=== PATIENT | female | born 2000 | race Caucasian/White ===

== ENCOUNTER 2024-02-09 17:58 | Emergency (ER) | payer BC, SELFPAY ==
--- NOTE | ~2024-02-09 | XR_ITS ---
EXAMINATION: XR LUMBOSACRAL SPINE CLINICAL INFORMATION: Low back pain COMPARISON: None available. TECHNIQUE: Three views of the lumbosacral spine. FINDINGS: Postop changes of laminectomy seen from L4 through S1. The vertebral bodies and posterior elements are otherwise unremarkable. The disc spaces are preserved and the vertebral alignment is normal. The paraspinal soft tissues are normal. XR/XR lumbar spine 2-3V IMPRESSION: Postop changes of laminectomy from L4 through S1. Please correlate with surgical history.
[2024-02-09 17:59] VITALS: BP 136/74; PULSE 79; RESP 18; TEMP 37.1; O2SAT 98; BMI 32.9
--- NOTE | 2024-02-09 18:00 | ED.BACK ---
HPI - Back Pain/Injury General Chief Complaint: Back Pain/Injury Stated Complaint: low back back shooting into R leg Time Seen by Provider: 02/09/24 17:59 Source: patient Mode of arrival: ambulatory Limitations: no limitations History of Present Illness ED Provider: Maricarmen Montez APRN HPI Narrative: 23 yo female with history of tethered cord s/p relapse here with complaints of lower back pain R>L after bending down after getting out of the shower today. Reports intermittent pain for months. Pain radiates down the right leg. Chronic right leg numbness since second surgery as a child. No left leg numbness. No numbness in the groin. No urinary symptoms or incontinence. No fevers, chills. Patient is ambulatory. Related Data Previous Rx's ?Medication ?Instructions ?Recorded cyclobenzaprine 10 mg tablet 10 mg PO TID PRN muscle spasm #15 02/09/24 tabs ibuprofen 600 mg tablet 600 mg PO Q6H PRN pain #30 tabs 02/09/24 prednisone 20 mg tablet 40 mg (2 x 20 mg) PO DAILY #10 tabs 02/09/24 Allergies Allergy/AdvReac Type Severity Reaction Status Date / Time codeine Allergy Hives Verified 02/09/24 18:02 Review of Systems Review of Systems: Yes all other systems are reviewed and are negative Constitutional: Constitutional: Reports no additional constitutional complaints, Denies body ache(s), Denies chills, Denies fever(s), Denies headache(s) and Denies weakness Eyes: Eyes: Reports no additional eye complaints and Denies change in vision ENT: Reports system reviewed and no additional complaints, except as documented, Denies dizziness, Denies headache(s), Denies nasal congestion, Denies nasal discharge and Denies neck pain Cardiovascular: Cardiovascular: Reports no additional cardiovascular complaints, Denies chest pain, Denies leg edema and Denies dyspnea Respiratory: Respiratory: Reports no additional respiratory complaints, Denies cough and Denies dyspnea Gastrointestinal: Gastrointestinal: Reports no additional gastrointestinal complaints, Denies abdominal pain, Denies diarrhea, Denies nausea and Denies vomiting Genitourinary: Genitourinary: Reports no additional female genitourinary complaints and Denies urinary incontinence Musculoskeletal: Musculoskeletal: Reports no additional musculoskeletal complaints, Reports back pain, Denies arthralgias, Denies joint swelling, Denies neck pain, Denies numbness, Reports radiating pain into limb and Denies tingling Integumentary/Breasts: Skin/Breast: Reports system reviewed and no additional complaints, except as docu and Denies rash Neurologic: Reports system reviewed and no additional complaints, except as documented, Denies Abnormal speech present, Denies dizziness, Denies headache(s), Denies numbness, Denies tingling and Denies weakness PMFSH Past Medical History Attestation statement: The following information was validated with the patient. Source: old records reviewed and nursing notes reviewed Social History Social History Advance Directives: No Advance Directives Information Provided: No Do you have a plan to hurt others: No Plan Physical Exam Vital Signs: Vital Signs: Last Vital Signs Temp 98.7 F 02/09/24 19:53 Pulse 79 02/09/24 19:53 Resp 18 02/09/24 19:53 BP 136/74 02/09/24 19:53 Pulse Ox 98 02/09/24 19:53 O2 Del Method Room Air 02/09/24 19:53 BMI result Body Mass Index 32.9 Const: General: cooperative, healthy appearing, comfortable and no acute distress Orientation/consciousness: patient oriented x3 Limitations: no limitations HEENT: Head: Yes normal to inspection Ears: hearing grossly normal bilaterally General nose exam: Normal external nose present Face and sinus: Yes normal facial exam Mouth: Normal oral and palatal mucosa present Throat: Yes posterior oropharynx normal Eyes: General: appearance normal, both eyes and all related structures Pupils: Equal, round and reactive pupils present Neck: Neck: Yes normal visual inspection Chest: Chest palpation & inspection: normal inspection of the chest Resp: Effort & Inspection: normal respiratory effort Auscultation: clear to auscultation bilaterally Cardio: Rate: regular rate Rhythm: regular rhythm Peripheral pulses: Peripheral pulses 2+ throughout GI: Inspection: Yes normal to inspection Palpation (GI): Soft to palpation and nontender Auscultation: normal bowel sounds Back/Spine/Pelvis: Other: There is tenderness the lumbar soft tissue on the right side. No midline tenderness, step-offs or deformities. Thoracic/Lumbar Spine: thoracic and lumbar spine normal to inspection Skin: General skin exam: no rashes or lesions noted Neuro: General: patient oriented x3, no focal motor deficits and normal sensation to monofilament Cranial nerves: Yes Equal, round and reactive pupils present Cognition (Neuro): normal cognition Speech: No Abnormal speech present Gait exam (Neuro): Normal gait present Motor exam (neuro): 5/5 motor strength present throughout Sensory Exam: Normal double simultaneous stimulation for sensation Deep tendon reflexes (DTR's): Right patellar reflex intensity grade: 2+ and Left patellar reflex intensity grade: 2+ Extrem: General: Yes normal to inspection Course Course Course Narrative: X-ray shows stable postop changes. This is consistent with patient's history of tethered cord release. No bony abnormalities. Patient will be discharged home with supportive measures. Reviewed worrisome signs and symptoms of when to return to the emergency room. Comfortable plan for discharge home. Medical Decision Making Medical Decision Making MDM Narrative: 23 yo female with history of tethered cord s/p relapse here with complaints of lower back pain R>L after bending down after getting out of the shower today. Reports intermittent pain for months. Pain radiates down the right leg. Chronic right leg numbness since second surgery as a child. No left leg numbness. No numbness in the groin. No urinary symptoms or incontinence. No fevers, chills. Patient is ambulatory Tenderness to the right lumbar soft tissue with no midline tenderness, step-offs or deformities. Patient with baseline sensation change in right lower extremity which is not new. Otherwise her neuro exam is normal. Will obtain x-rays Differential Diagnosis Differential Diagnoses: The differential diagnosis associated with the presentation includes Sciatica, lumbar strain, herniated, lumbar radiculopathy Low suspicion for epidural abscess, malignancy, cauda equina Admission/Observation Consideration of admission/observation: Escalation of care including admission/observation considered Low suspicion for epidural abscess, malignancy, cauda equina warranting advanced imaging Independent Interpretation I performed an independent interpretation of an: Plain X-Ray Interpretation: I independently reviewed the x-ray and agree with the radiology report Radiology Impression Discussion of test interpretation with radiology: I have reviewed the radiologist's reading. Radiologist Impression: [address] [address] XRay Report Signed Patient: Eduarda Amin MR#: [id number] : 2000 Acct:[id number] Age/Sex: 23 / F ADM Date: 02/09/24 Loc: HO.ED Attending Dr: Ordering Physician: Maricarmen Cespedes NP Date of Service: 02/09/24 Procedure(s): XR lumbar spine 2-3V Accession Number(s): [id number] cc: PREMA ORTIZ MD; Maricarmen Cespedes NP~ EXAMINATION: XR LUMBOSACRAL SPINE CLINICAL INFORMATION: Low back pain COMPARISON: None available. TECHNIQUE: Three views of the lumbosacral spine. FINDINGS: Postop changes of laminectomy seen from L4 through S1. The vertebral bodies and posterior elements are otherwise unremarkable. The disc spaces are preserved and the vertebral alignment is normal. The paraspinal soft tissues are normal. XR/XR lumbar spine 2-3V IMPRESSION: Postop changes of laminectomy from L4 through S1. Please correlate with surgical history. Tests considered The following testing was considered but not selected: Low suspicion for epidural abscess, malignancy, cauda equina warranting advanced imaging Prescription Management I considered prescription management with: Pain Medication Discharge Plan Discharge Clinical Impression: Strain of lumbar region Patient Disposition: Home, Self-Care Instructions: Low Back Strain (ED) Additional Instructions: Heat or ice Gentle stretching No heavy lifting or bending Follow-up with primary care doctor in 1 week for any persistent symptoms Return to the emergency room for any numbness in the groin, fever, bowel or bladder incontinence Prescriptions: New prednisone 20 mg tablet 40 mg PO DAILY Qty: 10 0RF cyclobenzaprine 10 mg tablet 10 mg PO TID PRN (Reason: muscle spasm) Qty: 15 0RF ibuprofen 600 mg tablet 600 mg PO Q6H PRN (Reason: pain) Qty: 30 0RF Referrals: Prema Ortiz MD [Primary Care Provider] - 1 week Stand Alone Forms: Work/School Release Interventions: ED Discharge Assessment Last Done: 02/09/24 19:53 Discharge Date/Time: 02/09/24 19:53 Print Language: Gambian
--- OUTSIDE RECORDS SUMMARY | 2024-02-09 18:41 | XMS_ITS | Continuity of Care Document ---
Author Organization [facility] Address [address] [place] [address]- Care Team Providers Care Architecture Analyst Name Role Phone Shaheed EXPERIMENTAL MECHANIC, Chelsey Schmidt Primary Care Physician [place] [facility] [place]/06[place]21 - 08/05/21 [facility] [address] [place], [place] [address] Attending Physician: Kim Edwards Admitting Physician: Kim Edwards Referring Physician: Kim Edwards Allergies, Adverse Reactions, Alerts Substance Reaction Severity Status codeine Rash Active Medications Cryselle 28 oral tablet 1 tablet, By Mouth, Daily, # 84 tablet, 3 Refills, [facility], 84, TAKE 1 TABLET BY MOUTHDAILY, 170.7, cm, 05/12/21 10:36:00 EDT, Height, 86.2, kg, 07/13/19 12:53:00 EST, Dry Weight Start Date: 06/27/21 Status: Ordered escitalopram 5 mg oral tablet 1 tablet = 5 mg, By Mouth, Daily, # 90 tablet, 0 Refills, Maintenance, 07/28/20 12:37:00 EST, Tablet, [facility], Partial fill upon patient request if the prescription is for a schedule II opioid drug., 171.5, cm, 07/28/20 8:51:00 EST, Heigh... Start Date: 07/28/20 Status: Ordered hydrocortisone 1% topical cream 1 application, Topically, 2 times a day, # 57 Gm, 1 Refills, Maintenance, 05/12/21 11:29:00 EDT, Cream, [id number], Partial fill upon patient request if the prescription is for a schedule II opioid drug., 1 application Topically 2 times a day,... Start Date: 05/12/21 Status: Ordered Problem List Condition Effective Dates Status Health Status Inform ant Chronic osteomyelitis of foot(Confirmed) Active Chronic vulvo-vaginitis/ exc essive vaginal discharge(Confirmed) Active Anxiety and depression(Confirmed) Active Tethered cord syndrome(Confirmed) Active Social History Social History Type Response Smoking Status Never (less than 100 in lifetime) entered on: 07/13/19 Sex
--- OUTSIDE RECORDS SUMMARY | 2024-02-09 18:41 | XMS_ITS | Continuity of Care Document ---
Author Organization [facility] Address [address] [place] [address]- Care Team Providers Care Technical Aid Name Role Phone Jazzmine Ortiz MD Primary Care Physician [place] [facility] [place] 03/29/23 - 04/28/23 [facility] [address] [place] [address]- Allergies, Adverse Reactions, Alerts Substance Reaction Severity Status codeine Rash Active Immunizations Given and Recorded Vaccine Date Status Refusal Reason influenza virus vaccine, inactivated 05/04/21 Zeus rded influenza virus vaccine, inactivated 04/01/20 Zeus rded influenza virus vaccine, inactivated 05/05/19 Zeus rded influenza virus vaccine, inactivated 05/04/18 Zeus rded SARS-CoV-2 (COVID-19) mRNA BNT-162b2 vac 09/23/20 Recorded SARS-CoV-2 (COVID-19) mRNA BNT-162b2 vac 09/02/20 Recorded Hepatitis A Pediatric Vaccine 12/31/17 Recorded Hepatitis A Pediatric Vaccine 12/28/16 Recorded Meningococcal Conjugate Vaccine 02/20/16 Recorded Human Papillomavirus Vaccine 02/20/16 Recorded Problem List Condition Confirmation Course Effective Dates Status H ealth Status Informant Chronic osteomyelitis of foot Confirmed Active Chronic vulvo-vaginitis/ excessive vaginal discharge Confirmed Active Hyperhidrosis Confirmed Active Anxiety and depression Confirmed Active Obese class I Confirmed Active Tethered cord syndrome Confirmed Active Social History Social History Type Response Smoking Status Never (less than 100 in lifetime) entered on: 07/13/19 Sex Patient Care team information Care Team Personnel Name: Jazzmine Ortiz MD Position: S Physician - Primary Care Member Role: PCP Address: Address: [facility] [place] [address]- Care Team Related Persons Name: WILY HUMPHRIES OR ANTOLIN Address: [address] [place] [address] Name: ADITYA HUMPHRIES Address: [address] [place] [address]
--- OUTSIDE RECORDS SUMMARY | 2024-02-09 18:41 | XMS_ITS | Continuity of Care Document ---
Author Organization [facility] Address [address] [place] [address]- Care Team Providers Care Cage Operator Name Role Phone Shaheed TURNER, Chelsey Schmidt Primary Care Physician [place] [facility] [place] 11/14/20 - 12/14/20 [facility] [address] [place], [place] [address] Allergies, Adverse Reactions, Alerts Substance Reaction Severity Status codeine Rash Active Medications Colace Capsule 100 mg, By Mouth, 2 times a day, Maintenance, 03/26/11 0:30:18 Start Date: 03/26/11 Status: Ordered Crutches See Instructions, # 1 pair, Maintenance, Please use as directed., 03/30/11 7:48:15 Start Date: 03/30/11 Status: Ordered Cryselle 28 oral tablet 1 tablet, By Mouth, Daily, 0 Refills, Maintenance, 05/13/20 9:04:00 EDT Start Date: 05/13/20 Status: Ordered escitalopram 5 mg oral tablet 1 tablet = 5 mg, By Mouth, Daily, # 90 tablet, 0 Refills, Maintenance, 07/28/20 12:37:00 EST, Tablet, [facility], Partial fill upon patient request if the prescription is for a schedule II opioid drug., 171.5, cm, 07/28/20 8:51:00 EST, Heigh... Start Date: 07/28/20 Status: Ordered ethinyl estradiol-norgestrel 30 mcg-0.3 mg oral tablet 1, tablet, By Mouth, Daily, # 84 tablet, Refills 3, Tot. Refills 3, Maintenance, 05/13/20 9:35:00 EDT, Route to Pharmacy Electronically, [facility] Tablet, 171.5, cm, 05/13/20 9:00:00 EDT, Height, 86.2, kg, 07/13/19 12:53:00 EST, Dry Weight Start Date: 05/13/20 Status: Ordered Gauze Roll (4 ) See Instructions, # 12 each, Maintenance, Please use as directed for dressing, 03/30/11 7:52:26 Start Date: 03/30/11 Status: Ordered Nu Gauze Nu Gauze, See Instructions, # 1 bottle, Refills 0, Tot. Refills 0, Maintenance, Please use as directed for right foot wound., 03/30/11 7:55:01 Start Date: 03/30/11 Status: Ordered Orthotics See Instructions, # 1 each, Maintenance, Please use heel support for right foot when walking, 03/30/11 8:19:28 Start Date: 03/30/11 Status: Ordered Wheelchair See Instructions, # 1 each, Maintenance, Please use as directed., 03/30/11 7:48:54 Start Date: 03/30/11 Status: Ordered Problem List Condition Effective Dates Status Health Status Inform ant Chronic osteomyelitis of foot(Confirmed) Active Anxiety and depression(Confirmed) Active Health care maintenance(Confirmed) Active Tethered cord syndrome(Confirmed) Active Social History Social History Type Response Smoking Status Never (less than 100 in lifetime) entered on: 07/13/19 Sex
--- OUTSIDE RECORDS SUMMARY | 2024-02-09 18:41 | XMS_ITS | Continuity of Care Document ---
Author Organization [facility] Address [address] [place] [address]- Care Team Providers Care Sewing Machine Adjuster Name Role Phone Shaheed TURNER, Chelsey Schmidt Primary Care Physician Encounter [facility] [place] Date(s): 08/12/20 - 09/11/20 [facility] [address] [place], [place] [email or web address] Allergies, Adverse Reactions, Alerts Substance Reaction Severity [...] 05/13/20 9:35:00 EDT, Route to Pharmacy Electronically, [facility] Tablet, 171.5, cm, 05/13/20 9:00:00 [...]
--- OUTSIDE RECORDS SUMMARY | 2024-02-09 18:41 | XMS_ITS | Continuity of Care Document ---
Author Organization [facility] Address [address] [place] [address]- Care Team Providers Care Armed Guard Name Role Phone Shaheed TURNER, Chelsey Schmidt Primary [id number]19/[facility] [address] [place] [address]- Attending Physician: Rufina Rodriguez MD Referring Physician: Chelsey Hummel NP Allergies, Adverse Reactions, Alerts Substance Reaction Severity [...] 05/13/20 9:35:00 EDT, Route to Pharmacy Electronically, [facility] Tablet, 171.5, cm, 05/13/20 9:00:00 [...]
--- OUTSIDE RECORDS SUMMARY | 2024-02-09 18:41 | XMS_ITS | Continuity of Care Document ---
Author Organization [facility] Address [address] [place] [address]- Care Team Providers Care Crm Coordinator Name Role Phone Shaheed FROZEN MEAT CUTTER, Chelsey Schmidt Primary Care Physician Encounter [facility] [place] Date(s): 08/22/21 - 09/21/[address] [address] Allergies, Adverse Reactions, Alerts Substance Reaction Severity [...] Refills, Maintenance, 05/12/21 11:29:00 EDT, Cream, [id number], Partial fill upon patient request if the [...]
--- OUTSIDE RECORDS SUMMARY | 2024-02-09 18:41 | XMS_ITS | Continuity of Care Document ---
Author Organization [facility] Address [address] [place] [address]- Care Team Providers Care Cabinet Maker Name Role Phone Shaheed TURNER, Chelsey Schmidt Primary Care Physician Encounter [facility] [place] Date(s): 03/17/21 - 04/16/21 [facility] [address] [place] [address]- Attending Physician: Kim Edwards Admitting Physician: Kim Edwards Referring Physician: AdmtrKim Allergies, Adverse Reactions, Alerts Substance Reaction Severity [...] 05/13/20 9:35:00 EDT, Route to Pharmacy Electronically, [facility] Tablet, 171.5, cm, 05/13/20 9:00:00 [...]
--- OUTSIDE RECORDS SUMMARY | 2024-02-09 18:41 | XMS_ITS | Continuity of Care Document ---
Author [facility] Address Unknown Care Team Providers Care Second Floor Operator Name Role Phone Shaheed TURNER, Chelsey Schmidt Primary Care Physician Encounter [facility] [place] Date(s): 04/18/21 - 05/18/21 [facility] Allergies, Adverse Reactions, Alerts Substance Reaction Severity [...] 03/30/11 7:52:26 Start Date: 03/30/11 Status: Ordered hydrocortisone 1% topical cream 1 application, Topically, 2 times a day, # 57 Gm, 1 Refills, Maintenance, 05/12/21 11:29:00 EDT, Cream, [id number], Partial fill upon patient request if the prescription is for a schedule II opioid drug., 1 application Topically 2 times a day,... Start Date: 05/12/21 Status: Ordered Nu Gauze Nu Gauze, See [...] ant Chronic osteomyelitis of foot(Confirmed) Active Chronic vaginitis(Confirmed) Active Anxiety and depression(Confirmed) Active Health care maintenance(Confirmed) Active Tethered cord syndrome(Confirmed) Active Social History Social History Type Response Smoking Status Never (less than 100 in lifetime) entered on: 07/13/19 Sex
--- OUTSIDE RECORDS SUMMARY | 2024-02-09 18:41 | XMS_ITS | Continuity of Care Document ---
Author Organization [facility] ter Address [address] [place] [id number]- Care Team Providers Care Car Body Inspector Name Role Phone Shaheed TURNER, Chelsey Schmidt Primary Care Physician Encounter [facility] Date(s): 09/18/22 - 09/18/[address] [address]- Encounter Diagnosis Abdominal pain(Final) - 09/18/22 Discharge Disposition: A-D/C Home Attending Physician: Delvis Pablo MD Admitting Physician: Delvis Pablo MD Referring Physician: Not on Staff, Referring MD Allergies, Adverse Reactions, Alerts Substance Reaction Severity Status codeine Rash Active Medications Drysol 20% topical solution 1 application, Topically, Daily at bedtime, PRN as needed for excessive sweating, # 35 mL, 0 Refills, Maintenance, 04/06/22 10:29:00 EDT, Solution, [id number], Partial fill upon patient request if the prescription is for a schedule II opioid d... Start Date: 04/06/22 Status: Ordered Effexor XR 37.5 mg oral capsule, extended release See Instructions, 1 capsule By Mouth Daily for 4 days., # 4 tablet, Refills 0, Tot. Refills 0, Maintenance, 04/06/22 10:20:00 EDT, Instructions Replace Required Details, Route to Pharmacy Electronically, [id number], Partial fill upon patient r... Start Date: 04/06/22 Status: Ordered Effexor XR 75 mg oral capsule, extended release 75 mg, 1, capsule, By Mouth, Daily, Take after the 4 days of 37.5 mg, # 30 capsule, Refills 0, Tot.Refills 0, Maintenance, 04/06/22 10:19:00 EDT, Route to Pharmacy Electronically, [id number], Partial fill upon patient request if the prescript... Start Date: 04/06/22 Status: Ordered famotidine 20 mg oral tablet 20 mg, 1, tablet, By Mouth, 2 times a day, # 60 tablet, Refills 0, Tot. Refills 0, Maintenance, 09/18/22 19:34:00 EST, Route to Pharmacy Electronically, [id number], Partial fill upon patient request if the prescription is for a schedule II opi... Start Date: 09/18/22 Status: Ordered Problem List Condition Confirmation Course Effective Dates Status H ealth Status Informant Chronic osteomyelitis of foot Confirmed Active Chronic vulvo-vaginitis/ excessive vaginal discharge Confirmed Active Hyperhidrosis Confirmed Active Anxiety and depression Confirmed Active Tethered cord syndrome Confirmed Active Results Radiology Reports * Exam Date Time Procedure Performing Provider Status 09/18/22 7:[address] Abd/Pelvis W/ IV + Oral Contrast Mireya Shaver; Auth (Verified) Notes: (CT Abd/Pelvis W/ IV + Oral Contrast) Reason For Exam: splenic pain;Other: RESULT: CT Abd/Pelvis W/ IV + Oral Contrast CT Abd/Pelvis W/ IV + Oral Contrast Hx of Present Illness: LUQ pain and tenderness- started a couple of months ago and became worse over the last 1 1 2 weeks. No N V D F C; Reason: Other:; splenic pain; Clinical Question(s): HemorrhageHematoma; Order Comment: TECHNIQUE: Spiral CT through the abdomen and pelvis with IV contrast formatted in 3 planes. 100 cc of Omnipaque 300 was administered intravenously. This study was performed with oral contrast. Weight-based protocol using automatic tube modulation was used to optimize exposure parameters. CTDIvol Body: 15.20 mGy, DLP Body: 882 mGy*cm. COMPARISON: None. FINDINGS: Folder Tier View Findings, Lines and Tubes: None. Visualized Chest: Lung bases are clear. No pleural effusion. The heart is normal in size. No pericardial effusion. Diaphragm: Normal. Liver: Normal. Gallbladder: No CT evidence of gallbladder pathology. Bile ducts: No biliary ductal dilation. Spleen: Normal. Pancreas: Normal. Adrenal glands: Normal. Kidneys and ureters: No hydronephrosis, stones, or suspicious masses. Bladder: Normal. Reproductive organs: The uterus is normal. Corpus luteal cyst in the left ovary. Normal right ovary. Stomach, small bowel, and large bowel: The stomach is normal. The small bowel is normal in caliber,with no evidence of bowel obstruction. The rectum contains a moderate amount of stool. The colon isnormal. Moderate amount of stool within the right hemicolon. Appendix: Normal. Peritoneum and retroperitoneum: No ascites or pneumoperitoneum. No omental or mesenteric lesions. Lymph nodes: No enlarged lymph nodes. Blood vessels: Normal. No aneurysm. No evidence of venous thrombosis. Abdominal and pelvic wall: Unremarkable. Bones: No acute abnormality. Partial sacralization of L5. Posterior spinous processes at L4 and L5 are absent, either on a congenital and/or postoperative basis. A small amount of fat within the spinal canal at L5-S1 may also be postoperative. IMPRESSION: No acute findings in the abdomen or pelvis. Normal appearing spleen. WSN: [id number] Ordering Physician: Delvis Pablo Dictated By: Huy Marques MD Dictated Date/Time: 09/18/22 7:22 pm Reviewed By: Huy Marques MD Signed By: Huy Marques MD Signed Date/Time: 09/18/22 7:22 pm Transcribed By: TANG Transcribed Date/Time: 09/18/22 7:15 pm * Exam Date Time Procedure Performing Provider Status 09/18/22 5:36 PM Chest 2 Views Frontal and Lat Marcelo Zimmerman; Elie (Verified) Notes: (Chest 2 Views Frontal and Lat) Reason For Exam: Shortness of Breath, Fever;Other: RESULT: Chest 2 Views Frontal and Lat Chest 2 Views Frontal and Lat Hx of Present Illness: LUQ pain and tenderness- started a couple of months ago and became worse over the last 1 1 2 weeks. No N V D F C; Reason: Other:; Shortness of Breath, Fever; Clinical Question(s): Pneumonia COMPARISON: None. FINDINGS: LINES AND TUBES: None. LUNGS AND PLEURA: Clear lungs. Normal pulmonary vascularity. No pleural effusion. No pneumothorax. HEART, MEDIASTINUM AND ERIN: Heart is normal in size. Normal mediastinal and hilar contour. BONES AND SOFT TISSUES: No acute abnormality. IMPRESSION: No acute abnormality. WSN: [id number] Ordering Physician: Delvis Pablo Dictated By: Jose Sanchez MD Dictated Date/Time: 09/18/22 5:39 pm Reviewed By: Jose Sanchez MD Signed By: Jose Sanchez MD Signed Date/Time: 09/18/22 5:39 pm Transcribed By: TANG Transcribed Date/Time: 09/18/22 5:39 pm Vital Signs Most recent to oldest [Reference Range]: 1 2 3 Height 173 cm (09/18/22 4:43 PM) Weight 86.5 kg (09/18/22 4:43 PM) Oxygen Saturation [94-100 %] 100 % (09/18/22 7:49 PM) 100 % (09/18/22 4:43 PM) 100 % (09/18/22 4:26 PM) Pulse Rate [55-90 bpm] 74 bpm (09/18/22 7:49 PM) 75 bpm (09/18/22 4:43 PM) 89 bpm (09/18/22 4:26 PM) Body Mass Index [18.5-24.99 kg/m2] 28.9 kg/m2 *H* (09/18/22 4:43 PM) Blood Pressure [90-138/55-84 mm Hg] 118/74mm Hg (09/18/22 7:49 PM) 135/76mm Hg (09/18/22 4:43 PM) Respiratory Rate [16-30 br/min] 18 br/min (09/18/22 7:49 PM) 17 br/min (09/18/22 4:43 PM) Temperature [96.8-100.4 DegF] 98.5 DegF (09/18/22 7:49 PM) 98.8 DegF (09/18/22 4:43 PM) Mode of Delivery (Oxygen) Room air (09/18/22 7:49 PM) Room air (09/18/22 4:43 PM) Room air (09/18/22 4:26 PM) Blood pressure sites Arm, right (09/18/22 7:49 PM) Arm, right (09/18/22 4:43 PM) Temperature Route Oral (09/18/22 7:49 PM) Oral (09/18/22 4:43 PM) Weight Obtained Via Patient/family state d (09/18/22 4:43 PM) Social History Social History Type Response Smoking Status Never (less than 100 in lifetime) entered on: 07/13/19 Sex Note * Delvis Pablo MD: PERFORM Event Display: Patient Education Leaflets Authored Date: [id number] Gastritis (Adult) ?? [id number] Gastritis (Adult) Gastritis is??inflammation and??irritation of the stomach lining. You can have it for a short time (acute) or it can be long lasting (chronic). Infection with bacteria called??H. pylori most often causes gastritis.??More than 1 out of 3 people in the [place] have these bacteria in their bodies. In many cases,??H. pylori??causes no problems or symptoms. But in some people, the infection irritates thestomach lining and causes gastritis. H. pylori may be diagnosed through blood, stool, or breath tests, or by a biopsy during an endoscopy. Other causes of stomach irritation include drinking alcohol,smoking or chewing tobacco, or taking pain-relieving medicines called nonsteroidal anti-inflammatory drugs (NSAIDs), such as aspirin or ibuprofen. Some illegal drugs (such as cocaine) and immune conditions can also cause gastritis. Symptoms of gastritis can include: ??? Belly pain or bloating ??? Feeling full quickly ??? Loss of appetite ??? Weight loss ??? Nauseaor vomiting ??? Vomiting blood or having black stools ??? Feeling more tired than normal An inflamed and irritated stomach lining is more likely to develop a sore called an ulcer. To help prevent this, gastritis should be evaluated and treated as soon as symptoms occur. Home care If needed, your healthcare provider may prescribe medicines. If you have??H. pylori??infection, treating it will likely ease your symptoms. Other changes can help reduce stomach irritation and help it heal. ??? Take prescription medicines as directed. If you have been prescribed medicines for??H. pylori??infection, take them as directed. Take all of the medicine until it's finished or until your provider tells you to stop taking it, even if you start to feel better. ??? Follow your healthcare provider's advice on NSAIDs. Your provider may advise you not to take NSAIDs such as ibuprofen. If you take daily aspirin for your heart or other health reasons, don't stop without talking with your provider first. ??? Don't drink alcohol. If you need help stopping your use of alcohol, ask your provider for treatment resources. ??? Stop smoking. Smoking can irritate the stomach and delay healing. As much as possible, stay away from secondhand smoke. If you smoke and have trouble stopping, ask your provider for help. ?? Follow-up care Follow up with your healthcare provider, or as advised. You may need testing to check for inflammation or an ulcer. ?? When to get medical advice Call your healthcare provider if any of the following occur: ??? Stomach pain that gets worse or moves to the lower right belly (appendix area) ??? Chest pain that suddenly appears or gets worse, or spreads to the back, neck, shoulder, or arm ??? Frequent vomiting (can???t keep down liquids) ??? Blood in the stool or vomit (red or black in color) ??? Feeling weak or dizzy ??? Shortness of breath ??? Unexplained weight loss ??? Fever of 100.4??F (38??C) or higher, or as directed by your healthcare provider ??? Symptoms that get worse, or new symptoms ?? Last Reviewed Date: 2022 ?? [id number] The [employer]. All rights reserved. This information is not intended as a substitute for professional medical care. Always follow your healthcare professional's instructions. ?? * Delvis Pablo MD: PERFORM Event Display: Patient Education Leaflets Authored Date: [id number] Gastritis Discharge Instructions ?? 673 Gastritis Discharge Instructions ? You must carefully read the Consumer Information Use and Disclaimer below in order to understand and correctly use this information ?? About this topic Gastritis is inflammation of the lining of the stomach. Sometimes gastritis is caused by bacteria. Other times, it can be caused by drugs. Some types of drugs can cause gastritis. The most common arenonsteroidal anti-inflammatory drugs (NSAIDs) like ibuprofen or naproxen. Gastritis can also be caused by other things like drinking alcohol or having a serious illness. It can also happen if you have a health problem in which the body???s own infection fighting system attacks the stomach lining. Based on the cause, you may need to take an antibiotic or other medicine to treat your gastritis. If so, be sure you finish all of the medicine that is ordered. ?? What care is needed at home? Ask your doctor what you need to do when you go home. Make sure?? you ask questions if you do not understand what the doctor says. ??? Eat small meals more often to help with belly pain. ??? Keepa diary about your pain and the foods you eat. Then you can?? avoid those that bother your stomach.??? Avoid or limit spicy foods. ??? Avoid or limit beer, wine, and mixed drinks. ??? If you smoke, try to quit. Your doctor or nurse can help. ??? Try to learn ways to manage stress. Stress may causethe acid levels in?? your stomach to rise. ??? If possible, avoid long-term use of aspirin and other anti- inflammatory drugs. ?? What follow-up care is needed? Your doctor may ask you to make visits to the office to check on your progress. Be sure to keep these visits. ?? What drugs may be needed? The doctor may order drugs to: ? Fight an infection ??? Control how much acid your stomach makes ??? Help healing ?? Will physical activity be limited? You may want to limit your activity if you have belly pain. Having an upset stomach or throwing up may also limit what you do. You may need more rest if you feel weak or tired. What problems could happen? Stomach ulcer or bleeding ??? Stomach cancer ?? When do I need to call the doctor? You start throwing up blood or pass a lot of blood in your stool. ??? Your belly pain becomes much worse all of a sudden or over a few?? hours. ??? Your belly becomes hard or tender. ??? You havechest pain or trouble breathing . ??? Your stools are bright red, black, or tar colored. ??? You are throwing up often. ??? Your belly pain does not get better even after taking medicine,?? changing your diet, and following treatment instructions. ??? You lose a lot of weight without trying. ?? Teach Back: Helping You Understand The Teach Back Method helps you understand the information we are giving you. After you talk with the staff, tell them in your own words what you learned. This helps to make sure the staff has described each thing clearly. It also helps to explain things that may have been confusing. Before going home, make sure you can do these: ? I can tell you about my condition. ??? I can tell you if I need to make changes with my diet ordrugs. ??? I can tell you what I will do if I throw up blood or have bloody or black?? tarry stools. ?? Where can I learn more? [facility] [place] https://www.nhs.[place]/conditions/gastritis/ Last Reviewed Date 2020-12-27 Consumer Information Use and Disclaimer: This generalized information is a limited summary of diagnosis, treatment, and/or medication information. It is not meant to be comprehensive and should be used as a tool to help the user understand and/or assess potential diagnostic and treatment options. It does NOT include all information about conditions, treatments, medications, side effects, or risks that may apply to a specific patient. Itis not intended to be medical advice or a substitute for the medical advice, diagnosis, or treatment of a health care provider based on the health care provider's examination and assessment of a patient???s specific and unique circumstances. Patients must speak with a health care provider for complete information about their health, medical questions, and treatment options, including any risks orbenefits regarding use of medications. This information does not endorse any treatments or medications as safe, effective, or approved for treating a specific patient. [employer]. and its affiliates disclaim any warranty or liability relating to this information or the use thereof. The use of this information is governed by the Terms of Use, available at??https://www.[employer].com/en/know/wjbgftts-zgtkqvhomerpq-jnutl Last Updated 09/13/21 ?? * Delvis Pablo MD: PERFORM Event Display: Patient Education Leaflets Authored Date: [id number] Acute Pain, Uncertain Cause ?? [id number] Acute Pain, Uncertain Cause Pain can be caused by many conditions that range from very minor to very serious. In some cases, though, pain comes and goes with no apparent cause. We were not able to find the exact cause for your pain. At this time there is no sign of any serious illness causing your pain. More tests may be needed to determine the cause. In many cases, pain like this goes away by itself. Home care Take any medicines as prescribed. If another medicine was not prescribed for pain, you can take an obqj-mgz-demzdvi pain medicine such as ibuprofen or acetaminophen. Use these as directed on the label. Talk with your healthcare provider before taking aneb-bkb-gaapljt pain medicine if you have a history of kidney or liver problems or bleeding in the stomach, or have heart disease. ?? Follow-up care Follow up with your??healthcare provider??or our staff as directed. ?? When to seek medical advice Call your healthcare provider for any of the following: ??? Pain changes in pattern ??? Pain doesn't lessen or gets worse ??? New symptoms appear ??? Fever??of 100.4??F (38??C) or higher,??or as directed by your healthcare provider ?? Last Reviewed Date: 2021 ?? [id number] The [employer]. All rights reserved. This information is not intended as a substitute for professional medical care. Always follow your healthcare professional's instructions. ?? * [facility] , CIS S: TRANSCRIBE Jose Sanchez MD: VERIFY Event Display: Result: Authored Date: [id number] Chest 2 Views Frontal and Lat Hx of Present Illness: LUQ pain and tenderness- started a couple of months ago and became worse over the last 1 1 2 weeks. No N V D F C; Reason: Other:; Shortness of Breath, Fever; Clinical Question(s): Pneumonia COMPARISON: None. FINDINGS: LINES AND TUBES: None. LUNGS AND PLEURA: Clear lungs. Normal pulmonary vascularity. No pleural effusion. No pneumothorax. HEART, MEDIASTINUM AND ERIN: Heart is normal in size. Normal mediastinal and hilar contour. BONES AND SOFT TISSUES: No acute abnormality. IMPRESSION: No acute abnormality. WSN: [id number] Ordering Physician: Delvis Pablo Dictated By: Jose Sanchez MD Dictated Date/Time: 09/18/22 5:39 pm Reviewed By: Jose Sanchez MD Signed By: Jose Sanchez MD Signed Date/Time: 09/18/22 5:39 pm Transcribed By: TANG Transcribed Date/Time: 09/18/22 5:[address] Abdomen and Pelvis W contrast IV * [facility] , CIS S: TRANSCHuy Gaming MD: VERIFY Event Display: Result: Authored Date: [id number] CT Abd/Pelvis W/ IV + Oral Contrast Hx of Present Illness: LUQ pain and tenderness- started a couple of months ago and became worse over the last 1 1 2 weeks. No N V D F C; Reason: Other:; splenic pain; Clinical Question(s): HemorrhageHematoma; Order Comment: TECHNIQUE: Spiral CT through the abdomen and pelvis with IV contrast formatted in 3 planes. 100 cc of Omnipaque 300 was administered intravenously. This study was performed with oral contrast. Weight-based protocol using automatic tube modulation was used to optimize exposure parameters. CTDIvol Body: 15.20 mGy, DLP Body: 882 mGy*cm. COMPARISON: None. FINDINGS: Folder Tier View Findings, Lines and Tubes: None. Visualized Chest: Lung bases are clear. No pleural effusion. The heart is normal in size. No pericardial effusion. Diaphragm: Normal. Liver: Normal. Gallbladder: No CT evidence of gallbladder pathology. Bile ducts: No biliary ductal dilation. Spleen: Normal. Pancreas: Normal. Adrenal glands: Normal. Kidneys and ureters: No hydronephrosis, stones, or suspicious masses. Bladder: Normal. Reproductive organs: The uterus is normal. Corpus luteal cyst in the left ovary. Normal right ovary. Stomach, small bowel, and large bowel: The stomach is normal. The small bowel is normal in caliber,with no evidence of bowel obstruction. The rectum contains a moderate amount of stool. The colon isnormal. Moderate amount of stool within the right hemicolon. Appendix: Normal. Peritoneum and retroperitoneum: No ascites or pneumoperitoneum. No omental or mesenteric lesions. Lymph nodes: No enlarged lymph nodes. Blood vessels: Normal. No aneurysm. No evidence of venous thrombosis. Abdominal and pelvic wall: Unremarkable. Bones: No acute abnormality. Partial sacralization of L5. Posterior spinous processes at L4 and L5 are absent, either on a congenital and/or postoperative basis. A small amount of fat within the spinal canal at L5-S1 may also be postoperative. IMPRESSION: No acute findings in the abdomen or pelvis. Normal appearing spleen. WSN: [id number] Ordering Physician: Delvis Pablo Dictated By: Huy Marques MD Dictated Date/Time: 09/18/22 7:22 pm Reviewed By: Huy Marques MD Signed By: Huy Marques MD Signed Date/Time: 09/18/22 7:22 pm Transcribed By: TANG Transcribed Date/Time: 09/18/22 7:15 pm Patient Care team information Care Team Personnel Name: Shaheed TURNER, Chelsey Schmidt Position: Reference Physician Member Role: PCP Address: Address: [address] [place] [address]- Name: Mala Salmeron Position: [facility] Name: Delvis Pablo MD Position: [facility] Medicine MD Member Role: Admitting Physician Address: Address: [address] [place] [address]- Name: Bernard Villalta RN Position: [facility] RN W/OE and Tasks Member Role: Patient Care Provider Care Team Related Persons Name: WILY HUMPHRIES Address: [place] [address] [place] [address] Name: ADITYA HUMPHRIES Address: home [address] [place] [address] [place] [address]
--- OUTSIDE RECORDS SUMMARY | 2024-02-09 18:41 | XMS_ITS | Continuity of Care Document ---
Author Organization [facility] Address [address] [place] [address]- Care Team Providers Care President [employer] Name Role Phone Shaheed TURNER, Chelsey Schmidt Primary Care Physician Encounter [facility] R [id number] Date(s): 08/25/21 - 09/01/21 [facility] [address] [place] [address]- Attending Physician: Rufina Rodriguez MD Referring Physician: Rufina Rodriguez MD Allergies, Adverse Reactions, Alerts Substance Reaction [...] Refills, Maintenance, 05/12/21 11:29:00 EDT, Cream, [id number], Partial fill upon patient request if the prescription is for a schedule II opioid drug., 1 application Topically 2 times a day,... Start Date: 05/12/21 Status: Ordered Problem List Condition Effective Dates Status Health Status Inform ant Chronic osteomyelitis of foot(Confirmed) Active Chronic vulvo-vaginitis/ exc essive vaginal discharge(Confirmed) Active Anxiety and depression(Confirmed) Active Tethered cord syndrome(Confirmed) Active Vital Signs Most recent to oldest [Reference Range]: 1 Height 170.7 cm (08/25/21 10:45 AM) Weight 85.7 kg (08/25/21 10:45 AM) Body Mass Index [18.5-24.99] 29.41 *H* (08/25/21 10:45 AM) Blood Pressure [90-138/55-84 mm Hg] 112/ 72mm Hg (08/25/21 10:45 AM) Blood pressure sites Arm, left (08/25/21 10:45 AM) Weight Obtained Via Standing scale (08/25/21 10:45 AM) Social History Social History Type Response Smoking Status Never (less than 100 in lifetime) entered on: 07/13/19 Sex
--- OUTSIDE RECORDS SUMMARY | 2024-02-09 18:41 | XMS_ITS | Continuity of Care Document ---
Author Organization [facility] Address [address] [place] [address]- Care Team Providers Care Data Analyst Report Writer Name Role Phone Shaheed TURNER, Chelsey Schmidt Primary Care Physician Encounter [facility] Date(s): 01/31/21 - 03/24/21 [facility] [address] [place], [place] [address] Attending Physician: Cele Last MD Allergies, Adverse Reactions, Alerts Substance Reaction [...] 05/13/20 9:35:00 EDT, Route to Pharmacy Electronically, [facility] Tablet, 171.5, cm, 05/13/20 9:00:00 [...]
--- OUTSIDE RECORDS SUMMARY | 2024-02-09 18:41 | XMS_ITS | Continuity of Care Document ---
Author Organization [facility] Address [address] [place] [address]- Care Team Providers Care Chief Crna Name Role Phone Melonie Sánchez MD Primary Care Physician Encounter [facility] [place] Date(s): 07/13/19 - 07/13/[address] [address]- [facility] Attending Physician: Lu Arriola Allergies, Adverse Reactions, Alerts Substance Reaction Severity Status codeine Rash Active Medications Colace Capsule 100 mg, By Mouth, 2 times a day, Maintenance, 03/26/11 0:30:18 Start Date: 03/26/11 Status: Ordered Crutches See Instructions, # 1 pair, Maintenance, Please use as directed., 03/30/11 7:48:15 Start Date: 03/30/11 Status: Ordered Gauze Roll (4 ) See Instructions, # 12 each, Maintenance, Please use as directed for dressing, 03/30/11 7:52:26 Start Date: 03/30/11 Status: Ordered nitrofurantoin macrocrystals 100 mg oral capsule 1 capsule = 100 mg, By Mouth, 2 times a day, for 5 days, # 10 capsule, 0 Refills, Acute 07/18/19 13:29:00 EST, 07/13/19 13:29:00 EST, [facility]aps[facility], [id number], 170, cm, 07/13/19 12:53:00 EST, Height, 86.2, kg, 07/13/19 12:53:00 EST, Dry Weight Start Date: 07/13/19 Stop Date: 07/18/19 Status: Ordered Nu Gauze Nu Gauze, See Instructions, # 1 bottle, Refills 0, Tot. Refills 0, Maintenance, Please use as directed for right foot wound., 03/30/11 7:55:01 Start Date: 03/30/11 Status: Ordered Orthotics See Instructions, # 1 each, Maintenance, Please use heel support for right foot when walking, 03/30/11 8:19:28 Start Date: 03/30/11 Status: Ordered phenazopyridine 100 mg oral tablet 100 mg, 1, tablet, By Mouth, 3 times a day after meals, for 2 days, with food, # 6 tablet, Refills 0, Tot. Refills 0, Acute 07/15/19 13:30:00 EST, 07/13/19 13:30:00 EST, Route to Pharmacy Electronically, [facility]/pharmacy #[id number], 170, cm, 07/13/19 12:53:00... Start Date: 07/13/19 Stop Date: 07/15/19 Status: Ordered sertraline 50 mg oral tablet = 75 mg, By Mouth, Daily, 0 Refills, Maintenance, 07/13/19 9:01:00 EST Start Date: 07/13/19 Status: Ordered Wheelchair See Instructions, # 1 each, Maintenance, Please use as directed., 03/30/11 7:48:54 Start Date: 03/30/11 Status: Ordered Problem List Condition Effective Dates Status Health Status Inform ant Chronic osteomyelitis of foot(Confirmed) Active Tethered cord syndrome(Confirmed) Active Social History Social History Type Response Smoking Status Never (less than 100 in lifetime) entered on: 07/13/19 Sex
--- OUTSIDE RECORDS SUMMARY | 2024-02-09 18:41 | XMS_ITS | Continuity of Care Document ---
Author Organization [facility] Address [address] [place] [address]- Care Team Providers Care Service Girl Name Role Phone Jazzmine Ortiz MD Primary Care Physician Encounter [facility] [place] [place] ACCT R [id number] Date(s): 09/13/23 - 10/13/23 [facility] [address] [place], [place] [address] Attending Physician: AdmKim marie Admitting Physician: AdmKim marie Referring Physician: Admtr, Ar8 Allergies, Adverse Reactions, Alerts Substance Reaction Severity Status codeine Rash Active Immunizations Given and Recorded Vaccine Date Status Refusal Reason influenza virus vaccine, inactivated 07/19/23 Give n influenza virus vaccine, inactivated 05/04/21 Zeus rded [...] Informant Chronic osteomyelitis of foot Confirmed Active Hyperhidrosis Confirmed Active Anxiety and depression Confirmed Active Obese class I Confirmed Active Tethered cord syndrome Confirmed Active Social History Social History Type Response Smoking Status Never (less than 100 in lifetime) entered on: 07/13/19 Sex Patient Care team information Care Team Personnel Name: Jazzmine Ortiz MD Position: S Physician - Primary Care Member Role: PCP Address: Address: [facility] [place] [address]- Care Team Related Persons Name: WILY HUMPHRIES OR ANTOLIN Address: [address] [place] [address] Name: ADITYA HUMPHRIES Address: [address] [place] [address]
--- OUTSIDE RECORDS SUMMARY | 2024-02-09 18:41 | XMS_ITS | Continuity of Care Document ---
Author Organization [facility] Address [address] [place] [address]- Care Team Providers Care Teacher Visually Impaired Name Role Phone Shaheed TURNER, Chelsey Schmidt Primary Care Physician Unava ilable Encounter [facility] [place] Date(s): 04/06/22 - 04/13/22 [facility] [address] [place] [address]- Encounter Diagnosis Routine physical examination(Discharge Diagnosis) - 04/06/22 Tethered cord syndrome(Discharge Diagnosis) - 04/06/22 Hair loss(Discharge Diagnosis) - 04/06/22 Hyperhidrosis(Discharge Diagnosis) - 04/06/22 Chronic osteomyelitis of foot(Discharge Diagnosis) - 04/06/22 MDD (major depressive disorder), recurrent episode, severe(Discharge Diagnosis) - 04/06/22 Attending Physician: Lesly Tucker NP Allergies, Adverse Reactions, Alerts Substance Reaction [...] 04/06/22 10:19:00 EDT, Route to Pharmacy Electronically, [facility]/pharmacy #[id number], Partial fill upon patient request if the prescript... Start Date: 04/06/22 Status: Ordered Problem List Condition Effective Dates Status Health Status Inform ant Chronic osteomyelitis of foot(Confirmed) Active Chronic vulvo-vaginitis/ exc essive vaginal discharge(Confirmed) Active Hyperhidrosis(Confirmed) Active Anxiety and depression(Confirmed) Active Tethered cord syndrome(Confirmed) Active Diagnosis Diagnosis Type Effective Dates Health Status Clinical Service Informant Routine physical examination Discharge Diagnosis 04/06/22 Tethered cord syndrome Discharge Diagnosis 04/06/22 Hair loss Discharge Diagnosis 04/06/22 Hyperhidrosis Discharge Diagnosis 04/06/22 Chronic osteomyelitis of foot Discharge Diagnosis 04/06/22 MDD (major depressive disorder), recurrent episode, severe Discharge Diagnosis 04/06/22 Vital Signs Most recent to oldest [Reference Range]: 1 Height 170.7 cm (04/06/22 10:01 AM) Weight 87.0 kg (04/06/22 10:01 AM) Oxygen Saturation [94-100 %] 99 % (04/06/22 10:01 AM) Pulse Rate [55-90 bpm] 73 bpm (04/06/22 10:01 AM) Body Mass Index [18.5-24.99] 29.86 *H* (04/06/22 10:01 AM) Blood Pressure [90-138/55-84 mm Hg] 113/ 78mm Hg (04/06/22 10:01 AM) Respiratory Rate [16-30 br/min] 16 br/mi n (04/06/22 10:01 AM) Blood pressure sites Arm, left (04/06/22 10:01 AM) Weight Obtained Via Standing scale (04/06/22 10:01 AM) Social History Social History Type Response Smoking Status Never (less than 100 in lifetime) entered on: 07/13/19 Sex Care Team Personnel Name: Chelsey Hummel NP
--- OUTSIDE RECORDS SUMMARY | 2024-02-09 18:41 | XMS_ITS | Continuity of Care Document ---
Author Organization [facility] Address [address] [place] [address]- Care Team Providers Care Soldering Machine Feeder Name Role Phone Shaheed TURNER, Chelsey Schmidt Primary Care Physician [place] [facility] [place] Date(s): 01/31/21 - 03/02/21 [facility] [address] [place], [place] [address] [place] Allergies, Adverse Reactions, Alerts Substance Reaction Severity [...] 05/13/20 9:35:00 EDT, Route to Pharmacy Electronically, [facility], 171.5, cm, 05/13/20 9:00:00 [...]
--- OUTSIDE RECORDS SUMMARY | 2024-02-09 18:41 | XMS_ITS | Continuity of Care Document ---
Author Organization [facility] Address [address] [place] [address]- Care Team Providers Care Acls Nurse Name Role Phone Not on Staff, PCP Primary Care Physician Unavail able [place] [facility] [place]21/22 - 10/21/22 [facility] [place] [address] [place] [address]- Allergies, Adverse Reactions, Alerts Substance Reaction Severity [...] 19:34:00 EST, Route to Pharmacy Electronically, [facility]/pharmacy #[id number], Partial fill upon patient request if the [...] Care team information Care Team Personnel Name: Not on Staff, PCP Position: S Physician (General Medicine) Member Role: PCP Care Team Related Persons Name: WILY HUMPHRIES Address: [address] [place], [place] [address] Name: ADITYA HUMPHRIES Address: home [address] [place] [address] [address] [place], [place] [address]
--- OUTSIDE RECORDS SUMMARY | 2024-02-09 18:41 | XMS_ITS | Continuity of Care Document ---
Author Organization [facility] Address [address] [place] [address]- Care Team Providers Care Administration Vice President Name Role Phone Shaheed TURNER, Chelsey Schmidt Primary Care Physician [place] [facility] [place] Date(s): 03/17/21 - 03/24/21 [facility] [address] [place], [place] [address] Attending Physician: Bala Peralta MD Referring Physician: Not on Staff, Referring [...] 05/13/20 9:35:00 EDT, Route to Pharmacy Electronically, [facility], 171.5, cm, 05/13/20 9:00:00 [...] care maintenance(Confirmed) Active Tethered cord syndrome(Confirmed) Active Procedures Procedure Date Related Diagnosis Body Site Status Foot Surgeries 1, 2 Compl eted Soinal cord untethering 3 Completed 53951, 2012, 2013, 2013, 2014 2Infected bone removal/ fix tendons 92657, 2008 Vital Signs Most recent to oldest [Reference Range]: 1 Height 170.7 cm (03/17/21 8:38 AM) Weight 93.8 kg (03/17/21 8:38 AM) Body Mass Index [18.5-24.99] 32.19 *>HHI* (03/17/21 8:38 AM) Blood Pressure [90-138/55-84 mm Hg] 114/ 68mm Hg (03/17/21 8:38 AM) Blood pressure sites Arm, right (03/17/21 8:38 AM) Weight Obtained Via Standing scale (03/17/21 8:38 AM) Social History Social History Type Response Smoking Status Never (less than 100 in lifetime) entered on: 07/13/19 Sex
--- OUTSIDE RECORDS SUMMARY | 2024-02-09 18:42 | XMS_ITS | Continuity of Care Document ---
Author Organization [facility] Address [address] [place] [address]- Care Team Providers Care Senior Tableau Developer Name Role Phone Shaheed TURNER, Chelsey Schmidt Primary Care Physician [place] [facility] [place](s[place] 05/12/21 - 05/19/21 [facility] [address] [place], [place] [address] Attending Physician: Bala Peralta MD Allergies, Adverse Reactions, Alerts Substance Reaction [...] 05/13/20 9:35:00 EDT, Route to Pharmacy Electronically, [facility], 171.5, cm, 05/13/20 9:00:00 [...] Refills, Maintenance, 05/12/21 11:29:00 EDT, Cream, [id number], Partial fill upon patient request if the [...] care maintenance(Confirmed) Active Tethered cord syndrome(Confirmed) Active Vital Signs Most recent to oldest [Reference Range]: 1 Height 170.7 cm (05/12/21 10:36 AM) Weight 90.2 kg (05/12/21 10:36 AM) Body Mass Index [18.5-24.99] 30.96 *>HHI* (05/12/21 10:36 AM) Blood Pressure [90-138/55-84 mm Hg] 118/ 66mm Hg (05/12/21 10:36 AM) Blood pressure sites Arm, right (05/12/21 10:36 AM) Weight Obtained Via Standing scale (05/12/21 10:36 AM) Social History Social History Type Response Smoking Status Never (less than 100 in lifetime) entered on: 07/13/19 Sex
--- OUTSIDE RECORDS SUMMARY | 2024-02-09 18:42 | XMS_ITS | Continuity of Care Document ---
Author Organization [facility] Address [address] [place] [address]- Care Team Providers Care Gyn Name Role Phone Shaheed [employer] BOATMAN, Chelsey Schmidt Primary Care Physician Unava ilable [place] [facility] [place] 12/08/21 - 01/07/22 [facility] [address] [place] [address]- Allergies, Adverse Reactions, Alerts Substance Reaction Severity [...] Refills, Maintenance, 05/12/21 11:29:00 EDT, [facility], [id number], Partial fill upon patient request if the [...]
--- OUTSIDE RECORDS SUMMARY | 2024-02-09 18:42 | XMS_ITS | Continuity of Care Document ---
Author Organization [facility] Address [address] [place] [address]- Care Team Providers Care Development Coordinator Name Role Phone Shaheed TURNER, Chelsey Schmidt Primary Care Physician Unanancy ilable Encounter [facility] [place] Date(s): 10/14/21 - 02/11/22 [facility] [address] [place], [place] [address] Attending Physician: Rufina Rodriguez MD Allergies, Adverse Reactions, [...] Refills, Maintenance, 05/12/21 11:29:00 EDT, Cream, [id number], Partial fill upon patient request if the [...]
--- OUTSIDE RECORDS SUMMARY | 2024-02-09 18:42 | XMS_ITS | Continuity of Care Document ---
Author Organization [facility] [place] Address [address] [place] [address]- Care Team Providers Care Land Sales Agent Name Role Phone Jazzmine Ortiz MD Primary Care Physician Encounter [facility] Date(s): 11/01/22 - 03/01/23 [facility] [address] [address] Attending Physician: Miguelito Clement MD Referring Physician: Not on Staff, Referring [...] Primary Care Member Role: PCP Address: Address: [facility] [place] [address]- [place] Care Team Related Persons Name: WILY HUMPHRIES Address: [address] [place] [address] Name: ADITYA HUMPHRIES Address: home [address] [place] [address]
--- OUTSIDE RECORDS SUMMARY | 2024-02-09 18:42 | XMS_ITS | Continuity of Care Document ---
Author Organization [facility] Address [address] [place] [address]- Care Team Providers Care Beauty Parlor Cleaner Name Role Phone Shaheed TURNER, Chelsey Schmidt Primary Care Physician [place] [facility] [place] 01/31/21 - 03/17/21 [facility] [address] [place], [place] [address] Attending Physician: Cele Last MD Allergies, Adverse [...] 05/13/20 9:35:00 EDT, Route to Pharmacy Electronically, [facility], 171.5, cm, 05/13/20 9:00:00 [...]
--- OUTSIDE RECORDS SUMMARY | 2024-02-09 18:42 | XMS_ITS | Continuity of Care Document ---
Author Organization [facility] Address [address] [place] [address]- Care Team Providers Care Box Person Name Role Phone Jazzmine Ortiz MD Primary Care Physician [phone] En[place] [facility] [place] Date(s): 04/23/23 - 05/23/23 [facility] [address] [place] [address]- [place] Allergies, Adverse Reactions, Alerts Substance Reaction Severity [...] Primary Care Member Role: PCP Address: Address: [facility] [place] [address]- Care Team Related Persons Name: WILY HUMPHRIES Address: [address] [place] [address] Name: ADITYA HUMPHRIES Address: [address] [place] [address]
--- OUTSIDE RECORDS SUMMARY | 2024-02-09 18:42 | XMS_ITS | Continuity of Care Document ---
Author Organization [facility] Address [address] [place] [address]- Care Team Providers Care Boiler Coverer Helper Name Role Phone Ranjith BLISS, Lorna Chatman Primary Care Physician En[facility] [place] ACCT R [id number] Date(s): 04/09/22 - 05/09/22 [facility] [address] [place] [address]- Allergies, Adverse Reactions, Alerts Substance Reaction Severity Status codeine Rash Active Medications Drysol 20% topical solution 1 application, Topically, Daily at bedtime, PRN as needed for excessive sweating, # 35 mL, 0 Refills, Maintenance, 04/06/22 10:29:00 EDT, Solution, [facility]/pharmacy #[id number], Partial fill upon patient request if [...] Date: 04/06/22 Status: Ordered Problem List Condition Confirmation Course Effective Dates Status H ealth Status Informant Chronic osteomyelitis of foot Confirmed Active Chronic vulvo-vaginitis/ excessive vaginal discharge Confirmed Active Hyperhidrosis Confirmed Active Anxiety and depression Confirmed Active Tethered cord syndrome Confirmed Active Social History Social History Type Response Smoking Status Never (less than 100 in lifetime) entered on: 07/13/19 Sex Patient Care team information Personnel Name: Ranjith BLISS, Lorna Chatman Address: Address: [address] [place] [address]
--- OUTSIDE RECORDS SUMMARY | 2024-02-09 18:42 | XMS_ITS | Continuity of Care Document ---
Author Organization [facility] Address [address] [place] [address]- Care Team Providers Care Hat Forming Machine Feeder Name Role Phone Shaheed TURNER, Chelsey Schmidt Primary Care Physician En[place] [facility] [place] Date(s): 08/11/20 - 09/10/20 [facility] [address] [place], [place] [address] Allergies, Adverse Reactions, Alerts Substance Reaction [...]
--- OUTSIDE RECORDS SUMMARY | 2024-02-09 18:42 | XMS_ITS | Continuity of Care Document ---
Author Organization [facility] Address [address] [place] [address]- Care Team Providers Care Transportation Museum Helper Name Role Phone Shaheed TURNER, Chelsey Schmidt Primary Care Physician [place] [facility] [place] 11/24/20 - 03/24/21 [facility] [address] [place], [place] [address] Attending Physician: Chelsey Hummel NP Allergies, Adverse Reactions, [...] 05/13/20 9:35:00 EDT, Route to Pharmacy Electronically, [facility], 171.5, cm, 05/13/20 9:00:00 [...]
--- OUTSIDE RECORDS SUMMARY | 2024-02-09 18:42 | XMS_ITS | Continuity of Care Document ---
Author Organization [facility] Address [address] [place] [address]- Care Team Providers Care Chief Enterprise Architect Name Role Phone Jazzmine Ortiz MD Primary Care Physician En[place] [facility] [place] Date(s): 03/29/23 - 04/28/23 [facility] [address] [place] [address]- Allergies, Adverse Reactions, Alerts Substance Reaction Severity [...] Primary Care Member Role: PCP Address: Address: [facility] [place] [address]- Care Team Related Persons Name: WILY HUMPHRIES Address: [address] [place] [address] Name: ADITYA HUMPHRIES Address: [address] [place] [address]
--- OUTSIDE RECORDS SUMMARY | 2024-02-09 18:42 | XMS_ITS | Continuity of Care Document ---
Author Organization [facility] Address [address] [place] [address]- Care Team Providers Care Compressed Air Pile Driver Operator Name Role Phone Ranjith BLISS, Lorna Chatman Primary Care Physician [place] [facility] [place](s): 05/04/22 - 06/03/22 [facility] [address] [place] [address]- Attending Physician: Kim Edwards Admitting Physician: Kim Edwards Referring Physician: AdmtrKim Allergies, Adverse Reactions, Alerts Substance Reaction Severity Status codeine Rash Active Medications Drysol 20% topical solution 1 application, Topically, Daily at bedtime, PRN as needed for excessive sweating, # 35 mL, 0 Refills, Maintenance, 04/06/22 10:29:00 EDT, [id number], Partial fill upon patient request if the prescription is for a schedule II opioid d... Start Date: 04/06/22 Status: Ordered Effexor XR 37.5 mg oral capsule, extended release See Instructions, 1 capsule By Mouth Daily for 4 days., # 4 tablet, Refills 0, Tot. Refills 0, Maintenance, 04/06/22 10:20:00 EDT, Instructions Replace Required Details, Route to [id number], Partial fill upon patient r... Start Date: 04/06/22 Status: Ordered Effexor XR 75 mg oral capsule, extended release 75 mg, 1, capsule, By Mouth, Daily, Take after the 4 days of 37.5 mg, # 30 capsule, Refills 0, Tot.Refills 0, Maintenance, 04/06/22 10:19:00 EDT, Route to [facility], [id number], Partial fill upon patient request if the [...] Care team information Care Team Personnel Name: Ranjith BLISS, Lorna Chatman Position: [facility] Primary Care Physician Member Role: PCP Address: Address: [address] [place] [address]- Care Team Related Persons Name: WILY HUMPHRIES OR ANTOLIN Address: [address] [place] [address] Name: ADITYA HUMPHRIES Address: [address] [place] [address]
--- OUTSIDE RECORDS SUMMARY | 2024-02-09 18:42 | XMS_ITS | Continuity of Care Document ---
Author Organization [facility] Address [address] [place] [address]- Care Team Providers Care Recreation Professor Name Role Phone Shaheed TURNER, Chelsey Schmidt Primary Care Physician En[place] [facility] [place] [place] Date(s): 08/30/20 - 09/29/20 [facility] [address] [place], [place] [address] Attending Physician: Kim Edwards Admitting Physician: AdmtrKim Referring Physician: Admtr, Ar8 Allergies, Adverse Reactions, [...] 05/13/20 9:35:00 EDT, Route to Pharmacy Electronically, [facility], 171.5, cm, 05/13/20 9:00:00 [...]
--- OUTSIDE RECORDS SUMMARY | 2024-02-09 18:42 | XMS_ITS | Continuity of Care Document ---
Author Organization [facility] Address [address] [place] [address]- Care Team Providers Care Timber Framer Helper Name Role Phone Shaheed TURNER, Chelsey Schmidt Primary Care Physician En[facility] [place] Date(s): 07/28/20 - 08/04/20 [facility] [address] [place] [address]- Encounter Diagnosis Anxiety and depression(Discharge Diagnosis) - 07/28/20 Attending Physician: Chelsey Hummel NP Allergies, Adverse [...] 05/13/20 9:35:00 EDT, Route to Pharmacy Electronically, [facility], 171.5, cm, 05/13/20 9:00:00 [...] care maintenance(Confirmed) Active Tethered cord syndrome(Confirmed) Active Diagnosis Diagnosis Type Effective Dates Health Status Clinical Service Informant Anxiety and depression Discharge Diagnosis 07/28/20 Vital Signs Most recent to oldest [Reference Range]: 1 Height 171.5 cm (07/28/20 8:51 AM) Social History Social History Type Response Smoking Status Never (less than 100 in lifetime) entered on: 07/13/19 Sex
--- OUTSIDE RECORDS SUMMARY | 2024-02-09 18:42 | XMS_ITS | Continuity of Care Document ---
Author Organization [facility] Address [address] [place] [address]- Care Team Providers Care Die Trouble Shooter Name Role Phone Ranjith BLISS, Lorna Chatman Primary Care Physician [place] [facility] [id number] Date(s): 06/29/22 - 07/29/22 [facility] [address] [place], [place] [address] Attending Physician: Kim Edwards Admitting Physician: Kim Edwards Referring Physician: Kim Edwards Allergies, Adverse Reactions, Alerts Substance Reaction Severity Status codeine Rash Active Medications Drysol 20% topical solution 1 application, Topically, Daily at bedtime, PRN as needed for excessive sweating, # 35 mL, 0 Refills, Maintenance, 04/06/22 10:29:00 EDT, Solution, [facility]/pharmacy #[id number], Partial fill upon patient request if the prescription is for a schedule II opioid d... Start Date: 04/06/22 Status: Ordered Effexor XR 37.5 mg oral capsule, extended release See Instructions, 1 capsule By Mouth Daily for 4 days., # 4 tablet, Refills 0, Tot. Refills 0, Maintenance, 04/06/22 10:20:00 EDT, Instructions Replace Required Details, Route to Pharmacy Electronically, [facility]/pharmacy #[id number], Partial fill upon patient r... Start Date: 04/06/22 Status: Ordered Effexor XR 75 mg oral capsule, extended release 75 mg, 1, capsule, By Mouth, Daily, Take after the 4 days of 37.5 mg, # 30 capsule, Refills 0, Tot.Refills 0, Maintenance, 04/06/22 10:19:00 EDT, Route to [facility], [id number], Partial fill upon patient request if the [...] Care team information Care Team Personnel Name: Lorna Kasper MD Position: [facility] Primary Care Physician Member Role: PCP Address: Address: [address] [place] [address]- Care Team Related Persons Name: WILY HUMPHRIES Address: [address] [place] [address] Name: ADITYA HUMPHRIES Address: home [address] [place] [address] [place] [address]
--- OUTSIDE RECORDS SUMMARY | 2024-02-09 18:42 | XMS_ITS | Continuity of Care Document ---
Author Organization [facility] Address [address] [place] [address]- Care Team Providers Care Spout Worker Name Role Phone Jazzmine Ortiz MD Primary Care Physician [phone] [place] [facility] [place]23 - 05/[place]/23 [facility] [address] [place] [address]- [place] Allergies, Adverse Reactions, Alerts Substance Reaction [...] Primary Care Member Role: PCP Address: Address: [facility] [place] [address]- Care Team Related Persons Name: WILY HUMPHRIES Address: [address] [place] [address] Name: ADITYA HUMPHRIES Address: [address] [place] [address]
--- OUTSIDE RECORDS SUMMARY | 2024-02-09 18:42 | XMS_ITS | Continuity of Care Document ---
Author Organization [facility] Address [address] [place] [address]- Care Team Providers Care Transportation Program Director Name Role Phone Ranjith BLISS, Lorna Chatman Primary Care Physician En[place] [facility] [place]): 04/06/22 - 06/03/22 [facility] [address] [place] [address]- Attending Physician: Urszula Wiggins NP Referring Physician: Chelsey Hummel NP Allergies, Adverse [...] Team Personnel Name: Lorna Kasper MD Position: [facility] Primary Care Physician Member Role: PCP Address: Address: [address] [place] [address]- Care Team Related Persons Name: WILY HUMPHRIES OR ANTOLIN Address: home [address] [place] [address] Name: ADITYA HUMPHRIES Address: home [address] [place] [address] [place] [address]
--- OUTSIDE RECORDS SUMMARY | 2024-02-09 18:42 | XMS_ITS | Continuity of Care Document ---
Author Organization [facility] Address [address] [place] [address]- Care Team Providers Care Healthcare Account Manager Name Role Phone Shaheed TURNER, Chelsey Schmidt Primary Care Physician [place] [facility] [place]13/20 - 05/20/20 [facility] [address] [place] [address]- [facility] Encounter Diagnosis Chronic osteomyelitis of foot(Discharge Diagnosis) - 05/13/20 Tethered cord syndrome(Discharge Diagnosis) - 05/13/20 Health care maintenance(Discharge Diagnosis) - 05/13/20 Anxiety and depression(Discharge Diagnosis) - 05/13/20 Attending Physician: Chelsey Hummel NP Allergies, Adverse [...] 9:04:00 EDT Start Date: 05/13/20 Status: Ordered ethinyl estradiol-norgestrel 30 mcg-0.3 mg oral tablet 1, tablet, By Mouth, Daily, # 84 tablet, Refills 3, Tot. Refills 3, Maintenance, 05/13/20 9:35:00 EDT, Route to Pharmacy Electronically, [facility]t, 171.5, cm, 05/13/20 9:00:00 [...] 03/30/11 8:19:28 Start Date: 03/30/11 Status: Ordered sertraline 50 mg oral tablet [...] Effective Dates Health Status Clinical Service Informant Chronic osteomyelitis of foot Discharge Diagnosis 05/13/20 Tethered cord syndrome Discharge Diagnosis 05/13/20 Health care maintenance Discharge Diagnosis 05/13/20 Anxiety and depression Discharge Diagnosis 05/13/20 Vital Signs Most recent to oldest [Reference Range]: 1 Height 171.5 cm (05/13/20 9:00 AM) Weight 93 kg (05/13/20 9:00 AM) Oxygen Saturation [94-100 %] 96 % (05/13/20 9:00 AM) Pulse Rate [55-90 bpm] 85 bpm (05/13/20 9:00 AM) Body Mass Index [18.5-24.99] 31.62 *>HHI* (05/13/20 9:00 AM) Blood Pressure [90-138/55-84 mm Hg] 127/ 81mm Hg (05/13/20 9:00 AM) Respiratory Rate [16-30 br/min] 24 br/mi n (05/13/20 9:00 AM) Blood pressure sites Arm, right (05/13/20 9:00 AM) Social History Social History Type Response Smoking Status Never (less than 100 in lifetime) entered on: 07/13/19 Sex
--- OUTSIDE RECORDS SUMMARY | 2024-02-09 18:42 | XMS_ITS | Continuity of Care Document ---
Author Organization [facility] Address [address] [place] [address]- Care Team Providers Care Machine Clerical Verifier Name Role Phone Jazzmine Ortiz MD Primary Care Physician [phone] [facility] [place] Date(s): 01/30/23 - 03/01/23 [facility] [address] [address] Attending Physician: AdmKim marie Admitting Physician: AdmtrKim Referring Physician: Admtr, Ar8 [...] Primary Care Member Role: PCP Address: Address: [address] [place] [address] [facility] [place] [address]- Care Team Related Persons Name: WLIY HUMPHRIES OR ANTOLIN Address: [address] [place] [address] Name: ADITYA HUMPHRIES Address: home [address] [place] [address] [place] [address]
--- OUTSIDE RECORDS SUMMARY | 2024-02-09 18:42 | XMS_ITS | Continuity of Care Document ---
Author Organization [facility] Address [address] [place] [address]- Care Team Providers Care Pierce And Shave Press Operator Name Role Phone Shaheed TURNER, Chelsey Schmidt Primary Care Physician En[facility] [place] Date(s): 02/15/21 - 03/17/21 [facility] [address] [place], [place] [address] Attending Physician: Kim Edwards Admitting Physician: Admtr, Kim Referring Physician: Admtr, Ar8 Allergies, Adverse Reactions, [...] 05/13/20 9:35:00 EDT, Route to Pharmacy Electronically, [facility] Tablet, 171.5, cm, 05/13/20 9:00:00 [...]
--- OUTSIDE RECORDS SUMMARY | 2024-02-09 18:42 | XMS_ITS | Continuity of Care Document ---
Author Organization [facility] Address [address] [place] [address]- Care Team Providers Care Lens Mold Setter Name Role Phone Shaheed TURNER, Chelsey Schmidt Primary Care Physician [place] [facility] [place] 11/14/20 - 12/14/20 [facility] [address] [place], [place] [address] Allergies, Adverse Reactions, Alerts Substance Reaction Severity [...] 05/13/20 9:35:00 EDT, Route to Pharmacy Electronically, [facility] Tablet, 171.5, cm, 05/13/20 9:00:00 [...]
--- OUTSIDE RECORDS SUMMARY | 2024-02-09 18:42 | XMS_ITS | Continuity of Care Document ---
Author Organization [facility] Address [address] [place] [address]- Care Team Providers Care Dorr Operator Name Role Phone Ranjith BLISS, Lorna Chtaman Primary Care Physician [place] [facility] [place] 04/10/22 - 05/10/22 [facility] [address] [place] [address]- Allergies, Adverse Reactions, Alerts Substance Reaction Severity [...] patient request if the prescript... Start Date: 9/16/22 Status: Ordered Problem List Condition Confirmation Course [...] Name: Ranjith BLISS, Lorna Chatman Address: Address: [address] [place] [address]
--- OUTSIDE RECORDS SUMMARY | 2024-02-09 18:42 | XMS_ITS | Continuity of Care Document ---
Author Organization [facility] Address [address] [place] [address]- Care Team Providers Care Reel Repairer Name Role Phone Shaheed TURNER, Chelsey Schmidt Primary Care Physician En[place] [facility] [place] Date(s): 11/15/20 - 12/15/20 [facility] [address] [place], [place] [address] Allergies, Adverse Reactions, Alerts Substance Reaction Severity [...] 05/13/20 9:35:00 EDT, Route to Pharmacy Electronically, [facility] Tablet, 171.5, cm, 05/13/20 9:00:00 [...]
--- OUTSIDE RECORDS SUMMARY | 2024-02-09 18:42 | XMS_ITS | Continuity of Care Document ---
Author Organization [facility] Address [address] [place] [address]- Care Team Providers Care Network Security Officer Name Role Phone Shaheed TURNER, Chelsey Schmidt Primary Care Physician En[place] [facility] [place] Date(s): 04/17/21 - 05/17/21 [facility] [address] [place], [place] [address] Allergies, Adverse Reactions, Alerts Substance Reaction Severity [...] Refills, Maintenance, 05/12/21 11:29:00 EDT, Cream, [id number], Partial fill upon patient request if the [...]
--- OUTSIDE RECORDS SUMMARY | 2024-02-09 18:42 | XMS_ITS | Continuity of Care Document ---
Author Organization [facility] Address [address] [place] [address]- Care Team Providers Care Clock And Watch Assembler Name Role Phone Shaheed TURNER, Chelsey Schmidt Primary Care Physician En[place] [facility] [place] Date(s): 02/02/21 - 03/04/21 [facility] [address] [place], [place] [address] Allergies, Adverse Reactions, Alerts Substance [...] 05/13/20 9:35:00 EDT, Route to Pharmacy Electronically, [facility] Tablet, 171.5, cm, 05/13/20 9:00:00 [...]
--- OUTSIDE RECORDS SUMMARY | 2024-02-09 18:42 | XMS_ITS | Continuity of Care Document ---
Author Organization [facility] Address [address] [place] [address]- Care Team Providers Care Dinkey Operator Name Role Phone Shaheed CUT OFF SAW OPERATOR METAL, Chelsey Schmidt Primary [id number]30[facility] - 07/07/21 [facility] [address] [place], [place] [address] Attending Physician: Rufina Rodriguez MD [...] EST, Heigh... Start Date: 07/28/20 Status: Ordered Gauze Roll (4 ) See Instructions, # 12 each, Maintenance, Please use as directed for dressing, 03/30/11 7:52:26 Start Date: 03/30/11 Status: Ordered hydrocortisone 1% topical cream 1 application, Topically, 2 times a day, # 57 Gm, 1 Refills, Maintenance, 05/12/21 11:29:00 EDT, Cream, [id number], Partial fill upon patient request if the [...] oldest [Reference Range]: 1 Height 170.7 cm (06/30/21 11:06 AM) Weight 86.6 kg (06/30/21 11:06 AM) Body Mass Index [18.5-24.99] 29.72 *H* (06/30/21 11:06 AM) Blood Pressure [90-138/55-84 mm Hg] 110/ 60mm Hg (06/30/21 11:06 AM) Blood pressure sites Arm, left (06/30/21 11:06 AM) Dry Weight 86.6 kg (06/30/21 11:06 AM) Weight Obtained Via Standing scale (06/30/21 11:06 AM) Dry Weight Obtained Via Standing scale (06/30/21 11:06 AM) Social History Social History Type Response Smoking Status Never (less than 100 in lifetime) entered on: 07/13/19 Sex
--- OUTSIDE RECORDS SUMMARY | 2024-02-09 18:42 | XMS_ITS | Continuity of Care Document ---
Author Organization [facility] Address [address] [place] [address]- Care Team Providers Care Wrapping Machine Tender Name Role Phone Shaheed TURNER, Chelsey Schmidt Primary Care Physician Encounter [facility] Date(s): 04/18/21 - 05/18/21 [facility] [address] [place], [place] [address] Allergies, Adverse Reactions, Alerts Substance Reaction [...] Refills, Maintenance, 05/12/21 11:29:00 EDT, Cream, [id number], Partial fill upon patient request if the [...]
--- OUTSIDE RECORDS SUMMARY | 2024-02-09 18:42 | XMS_ITS | Continuity of Care Document ---
Author Organization [facility] Address [address] [place] [address]- Care Team Providers Care Computer Tape Librarian Name Role Phone Shaheed TURNER, Chelsey Schmidt Primary Care Physician En[facility] [place] Date(s): 07/29/20 - 09/29/20 [facility] [address] [place] [address]- Attending Physician: Chelsey Hummel NP Allergies, Adverse [...] 05/13/20 9:35:00 EDT, Route to Pharmacy Electronically, [facility] Tablet, 171.5, cm, 05/13/20 9:00:00 [...]
--- OUTSIDE RECORDS SUMMARY | 2024-02-09 18:42 | XMS_ITS | Continuity of Care Document ---
Author Organization [facility] Address [address] [place] [address]- Care Team Providers Care Aluminum Welder Name Role Phone Jazzmine Ortiz MD Primary Care Physician [place] [facility] [place]/23/23 - 05/23/23 [facility] [address] [place] [address]- [place] Allergies, Adverse Reactions, Alerts Substance Reaction [...] Primary Care Member Role: PCP Address: Address: [facility] [place] [address]- Care Team Related Persons Name: WILY HUMPHRIES Address: [address] [place] [address] Name: ADITYA HUMPHRIES Address: [address] [place] [address]
--- OUTSIDE RECORDS SUMMARY | 2024-02-09 18:42 | XMS_ITS | Continuity of Care Document ---
Author Organization [facility] Address [address] [place] [address]- Care Team Providers Care Rn Placement Name Role Phone Shaheed TURNER, Chelsey Schmidt Primary Care Physician Encounter [facility] Date(s): 04/05/21 - 05/05/21 [facility] [address] [place], [place] [address] Allergies, Adverse Reactions, Alerts Substance Reaction [...]
--- OUTSIDE RECORDS SUMMARY | 2024-02-09 18:42 | XMS_ITS | Continuity of Care Document ---
Author Organization [facility] Address [address] [place] [address]- Care Team Providers Care Supervisor Stone Name Role Phone Shaheed TURNER, Chelsey Schmidt Primary Care Physician [place] [facility] [place] 04/13/20 - 05/13/[address] [address] Allergies, Adverse Reactions, Alerts Substance Reaction Severity [...] 05/13/20 9:35:00 EDT, Route to Pharmacy Electronically, [facility] Tablet, 171.5, cm, 05/13/20 9:00:00 [...]
--- OUTSIDE RECORDS SUMMARY | 2024-02-09 18:42 | XMS_ITS | Continuity of Care Document ---
Author Organization [facility] Address [address] [place] [address]- Care Team Providers Care Production Support Engineer Name Role Phone Angel BLISS, Jazzmine Dozier Primary Care Physician [place] [facility] [place] 09[place]13/23 - 09/20/23 [facility] [address] [place] [address]- Attending Physician: Jaelyn Briggs NP Allergies, Adverse Reactions, Alerts Substance Reaction [...] Confirmed Active Tethered cord syndrome Confirmed Active Vital Signs Most recent to oldest [Reference Range]: 1 Height 173 cm (09/13/23 10:45 AM) Weight 96.2 kg (09/13/23 10:45 AM) Body Mass Index [18.5-24.99 kg/m2] 32.14 kg/m2 *>HHI* (09/13/23 10:45 AM) Blood Pressure [90-138/55-84 mm Hg] 114/ 64mm Hg (09/13/23 10:45 AM) Blood pressure sites Arm, left (09/13/23 10:45 AM) Dry Weight 96.2 kg (09/13/23 10:45 AM) Weight Obtained Via Standing scale (09/13/23 10:45 AM) Dry Weight Obtained Via Standing scale (09/13/23 10:45 AM) Social History Social History Type Response Smoking Status Never (less than 100 in lifetime) entered on: 07/13/19 Sex Patient Care team information Care Team Personnel Name: Jazzmine Ortiz MD Position: [facility] Physician - Primary Care Member Role: PCP Address: Address: [address] [place] [address] [place] [address]- Care Team Related Persons Name: WILY HUMPHRIES Address: [address] [place] [address] Name: ADITYA HUMPHRIES Address: home [address] [place] [address] [place] [address]
[2024-02-09 19:53] VITALS: BP 136/74; PULSE 79; RESP 18; TEMP 37.1; O2SAT 98
== END 2024-02-09 19:53 | disposition home or self-care (01) ==
PROVIDERS: Emergency Provider Emergency Medicine; PCP Internal Medicine
DX: S39.012A Strain of muscle, fascia and tendon of lower back, initial encounter (principal); X50.1XXA Overexertion from prolonged static or awkward postures, initial encounter; Y93.E1 Activity, personal bathing and showering; Y92.091 Bathroom in other non-institutional residence as the place of occurrence of the external cause; Y99.8 Other external cause status
CPT/HCPCS: 72100; 99282; 99283